=== PATIENT | female | born 1970 | race Caucasian/White ===

== ENCOUNTER → 2017-12-06 18:50 | Outpatient (CLI) | payer OTHER, SELFPAY ==
--- NOTE | 2017-12-06 18:52 | DI.RAD.S_ITS ---
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 TECHNIQUE: 3 views of the right toe(s) acquired. COMPARISON: None. FINDINGS: Bones: No fractures. There is dislocation of the middle phalanx of the fourth digit medially relative to the proximal phalanx. No suspicious bony lesions. Soft tissues: No suspicious soft tissue densities. IMPRESSION: Fourth digit dislocation as above. Dictated by: Jose Cruz Thomas M.D. on 12/06/2017 at 19:07 Approved by: Jose Cruz Thomas M.D. on 12/06/2017 at 19:08
== END ==
PROVIDERS: Visit Provider Physician Assistant
DX: S93.104A Unspecified dislocation of right toe(s), initial encounter (principal)
CPT/HCPCS: 73660

== ENCOUNTER 2017-12-06 19:11 | Emergency (ER) | payer OTHER, SELFPAY ==
[2017-12-06 19:16] VITALS: BP 169/91; PULSE 78; RESP 20; TEMP 36.4; O2SAT 100
--- NOTE | 2017-12-06 20:15 | PC.NURSE ---
Sami at bs for assessment
--- NOTE | 2017-12-06 20:23 | DI.RAD.S_ITS ---
PROCEDURE: XR TOE RT MIN 2V INDICATIONS: Post reduction dislocation 4th toe TECHNIQUE: 3 views of the right fourth toe(s) acquired. COMPARISON: None. FINDINGS: Bones: No fractures. Fourth digit has been relocated with mild residual medial subluxation of the middle phalanx. No suspicious bony lesions. Soft tissues: No suspicious soft tissue densities. IMPRESSION: Mild residual subluxation of middle phalanx, status post relocation. Dictated by: Jose Cruz Thomas M.D. on 12/06/2017 at 20:44 Approved by: Jose Cruz Thomas M.D. on 12/06/2017 at 20:45
--- NOTE | 2017-12-06 20:50 | DI.RAD.S_ITS ---
PROCEDURE: XR TOE RT MIN 2V INDICATIONS: Slight subluxation after 1st reduction TECHNIQUE: 3 views of the right fourth toe(s) acquired. COMPARISON: [facility], , XR TOE RT MIN 2V, 12/06/2017, 20:09. FINDINGS: Bones: The fourth digit has been relocated. There is a small radiodensity adjacent to the proximal interphalangeal joint of the fourth digit. No suspicious bony lesions. Soft tissues: No suspicious soft tissue densities. IMPRESSION: 1. Relocation of fourth digit. 2. Small fracture fragment adjacent to the proximal interphalangeal joint of the fourth digit. Dictated by: Jose Cruz Thomas M.D. on 12/06/2017 at 21:54 Approved by: Jose Cruz Thomas M.D. on 12/06/2017 at 21:55
--- NOTE | 2017-12-06 21:28 | PC.NURSE ---
protable xray at bedside
--- NOTE | 2017-12-06 22:05 | ED_ITS ---
HPI - Extremity Injury (Lower) <OLINDA Ellington - Last Filed: 12/06/17 22:25> General Chief Complaint: Extremity Injury, Lower Stated Complaint: TOE NEEDS SNAPPED INTO PLACE Time Seen by Provider: 12/06/17 19:26 History of Present Illness HPI Narrative: 47-year-old female here for complaint of pain and dislocation to her right 4th toe. Patient states that she was down in [place] when she was in the pool yesterday when she accidentally caught her toe along a hand rail in the pool with that toe. She flew back today and was seen at the walk-in clinic with an x-ray that shows that the toe is dislocated. She was sent here to have toe reduced. She denies any other injuries or complaints. Increased pain with motion of the right 4th toe.. Related Data Previous Rx's Medication Instructions Recorded epinephrine [EpiPen 2-Syed] 0.3 mg SQ PRN PRN #1 pkg 10/27/16 fluticasone 1 spray INTRANASAL BID #16 gm 12/10/16 norgestrel-ethinyl estradiol 1 tab PO QDAY #4 pac 12/10/16 [Ogestrel (28)] spironolactone 200 mg PO QDAY #180 tab 12/10/16 alprazolam 0.25 mg PO HSP PRN #30 tab 06/01/17 nystatin-triamcinolone 100,000 1 applictn TOPICAL BID #30 gram 11/23/17 unit/gram-0.1 % topical ointment Allergies Allergy/AdvReac Type Severity Reaction Status Date / Time watermelon [WATERMELON] Allergy Intermediate rash Unverified 12/06/17 18:08 Penicillins [PENICILLINS] Allergy Unknown Unverified 12/06/17 18:08 doxycycline [DOXYCYCLINE] AdvReac Mild rash Unverified 12/06/17 18:08 PEA Allergy Mild swelling Uncoded 12/06/17 18:08 of airway pit fruit AdvReac Mild itching Uncoded 12/06/17 18:08 throat Review of Systems <OLINDA Ellington - Last Filed: 12/06/17 22:25> Constitutional Denies chills, Denies fever(s), Denies lethargy and Denies weakness Eyes Denies change in vision, Denies eye discharge, Denies irritation and Denies loss of vision ENT Ears, Nose, Mouth, and Throat: Denies change in voice, Denies neck pain and Denies sore throat Cardiovascular Denies chest pain, Denies irregular heart rhythm, Denies lightheadedness, Denies palpitations, Denies dyspnea, Denies dyspnea on exertion and Denies orthopnea Respiratory Denies cough, Denies dyspnea, Denies dyspnea on exertion and Denies wheezing Gastrointestinal Gastrointestinal: Denies abdominal pain, Denies change in bowel habits, Denies diarrhea, Denies nausea and Denies vomiting Genitourinary Denies hematuria, Denies flank pain, Denies urinary incontinence and Denies urinary urgency Musculoskeletal Denies neck pain Comments: Right 4th toe dislocation and pain Integumentary/Breasts Denies pruritus, Denies erythema, Denies rash and Denies wounds Neurologic Denies confusion, Denies loss of vision and Denies weakness Psychiatric Denies anxiety, Denies confusion, Denies depression, Denies homicidal ideation and Denies suicidal ideation Endocrine Denies palpitations Hematologic/Lymphatic Denies easy bruising Allergic/Immunologic Denies wheezing Exam <OLINDA Ellington - Last Filed: 12/06/17 22:25> Initial Vital Signs Initial Vital Signs: Vital Signs Temperature 97.6 F 12/06/17 19:16 Pulse Rate 78 12/06/17 19:16 Respiratory Rate 20 12/06/17 19:16 Blood Pressure 169/91 H 12/06/17 19:16 Pulse Oximetry 100 12/06/17 19:16 Const General: cooperative and well developed Nutritional Appearance: well nourished Orientation: alert, awake, oriented x3 and not confused [facility] Mouth: oral mucosae normal and moist mucous membranes Eyes Conjunctivae: conjunctivae normal Sclera: sclerae normal Pupils: PERRL EOM: EOM intact bilaterally Resp Effort & Inspection: normal respiratory effort, able to speak in complete sentences, no respiratory distress and no use of accessory muscles Auscultation: clear to auscultation bilaterally, no rales, no rhonchi and no wheezes Cardio Rate: regular rate Rhythm: regular rhythm Heart Sounds: no click, no gallops, no murmurs and no rubs Skin General: no rashes or lesions noted, No jaundice and No petechiae Extrem Other: Slight swelling and tenderness to the right 4th great toe. Slight angulation medially. Distal sensation is intact. Distal cap refill less than 2 sec. Patient has range of motion of the toe. <DO Jean Carlos Kim Last Filed: 12/06/17 23:43> Initial Vital Signs Initial Vital Signs: Vital Signs Temperature 97.6 F 12/06/17 19:16 Pulse Rate 78 12/06/17 19:16 Respiratory Rate 20 12/06/17 19:16 Blood Pressure 169/91 H 12/06/17 19:16 Pulse Oximetry 100 12/06/17 19:16 Course <OLINDA Ellington - Last Filed: 12/06/17 22:25> Orders Ordered: ED Orders 12/06/17 20:23 XR toe RT min 2V Stat 12/06/17 20:50 XR toe RT min 2V Stat Vital Signs - 8 hr 12/06/17 19:16 12/06/17 22:13 Temperature 97.6 F Pulse Rate 78 67 Respiratory Rate 20 17 Blood Pressure 169/91 H 162/44 H Pulse Oximetry 100 <Agapito Aguilera DO - Last Filed: 12/06/17 23:43> Orders Ordered: ED Orders 12/06/17 20:23 XR toe RT min 2V Stat 12/06/17 20:50 XR toe RT min 2V Stat Vital Signs - 8 hr 12/06/17 19:16 12/06/17 22:13 Temperature 97.6 F Pulse Rate 78 67 Respiratory Rate 20 17 Blood Pressure 169/91 H 162/44 H Pulse Oximetry 100 MDM - Extremity Injury (Lower) <OLINDA Ellington - Last Filed: 12/06/17 22:25> Imaging Data toe: Radiologist's impression: 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 TECHNIQUE: 3 views of the right toe(s) acquired. COMPARISON: None. FINDINGS: Bones: No fractures. There is dislocation of the middle phalanx of the fourth digit medially relative to the proximal phalanx. No suspicious bony lesions. Soft tissues: No suspicious soft tissue densities. IMPRESSION: Fourth digit dislocation as above. Dictated by: Jose Cruz Thomas M.D. on 12/06/2017 at 19:07 Approved by: Jose Cruz Thomas M.D. on 12/06/2017 at 19:08 toe post reduction: Radiologist's impression: MDM Narrative Medical decision making narrative: Digital block was provided to the 4th right toe for local anesthesia. Reduction was completed of the toe post reduction x- ray showed still slight subluxation of the toe. Second reduction was completed with a another x-ray obtained and shows complete reduction of the toe. A small bone fragment is seen into PIP joint on x-ray. Toe was fide-taped to other toe. Follow up with primary care provider in a week for re-evaluation. Toe is fide taped to other toe. Patient already has postop shoe to wear for comfort and support use as directed for any worsening symptoms return emergency room. Discharge Plan Departure Patient Disposition: Home, Self-Care Clinical Impression: Closed dislocation of toe Discharge Date/Time: 12/06/17 22:14 Interventions: ED Discharge Assessment Last Done: 12/06/17 22:13 Instructions: Dislocated Toe Activity Restrictions/Additional Instructions: X-ray shows dislocation of right 4th toe. Toe was reduced today in the emergency room. X-ray does show that there is a small bone fragment to the area of the joint of the toe. You toe has been fide-taped to the other toe for comfort support. Use the postop shoe as directed for also for comfort and support. [id number] Tylenol or Motrin as needed for any discomfort. Ice and elevation help swelling. Follow up with primary care provider next week for re-evaluation. For any worsening symptoms return to the emergency room. Prescriptions: No Action epinephrine [EpiPen 2-Syed] 0.3 MG/0.3 ML auto-injector 0.3 mg SQ PRN PRNQty: 1 RF: 1 spironolactone 100 MG tablet 200 mg PO QDAY Qty: 180 RF: 3 norgestrel-ethinyl estradiol [Ogestrel (28)] 1 EACH tablet 1 tab PO QDAY Qty: 4 RF: 4 fluticasone 16 GM spray,suspension 1 spray Intranasal BID Qty: 16 RF: 3 alprazolam 0.25 MG tablet 0.25 mg PO HSP PRNQty: 30 RF: 2 nystatin-triamcinolone 100,000-0.1 unit/gram-% ointment 1 applictn Topical BID Qty: 30 RF: 5 Referrals: [facility] [Provider Group] <Agapito [place], DO - Last Filed: 12/06/17 23:43> Cosign ED Attending Veronikaature Attestation: I was immediately available in the department for consultation. Documentation has been reviewed. I agree with assessment and plan.
[2017-12-06 22:13] VITALS: BP 162/44; PULSE 67; RESP 17
== END 2017-12-06 22:14 | disposition home or self-care (01) ==
PROVIDERS: Emergency Provider Nurse Practitioner Family
DX: S93.104A Unspecified dislocation of right toe(s), initial encounter (principal); W23.1XXA Caught, crushed, jammed, or pinched between stationary objects, initial encounter
CPT/HCPCS: 73660; 99282; 99283

== ENCOUNTER → 2018-11-22 07:55 | Outpatient (CLI) | payer OTHER, SELFPAY ==
[2018-11-22 08:55] LABS: Alanine Aminotransferase 21 IU/L (9-52); Albumin 4.2 g/dL (3.5-5.0); Albumin Globulin Ratio 1.3 (1.0-2.8); Alkaline Phosphatase 43 U/L (38-126); Aspartate Aminotransferase 16 IU/L (14-36); BUN Creatinine Ratio 17.1 (6-22); Bilirubin Total 0.4 mg/dL (0.2-1.3); Blood Urea Nitrogen 12 mg/dL (7-17); Calcium 9.3 mg/dL (8.4-10.2); Carbon Dioxide 23 mmol/L (22-32); Chloride 105 mmol/L (98-107); Cholesterol 161 mg/dL (140-199); Estimated Glomerular Filt Rate > 60.0 mL/min (>60); Globulin 3.2 g/dL (1.7-4.1); Glucose 95 mg/dL (70-100); HDL Cholesterol 56 mg/dL (40-60); HEMOLYSIS < 15 (0-50); LDL Cholesterol Calculated 72 mg/dL (<100); Potassium 4.2 mmol/L (3.4-5.1); Sodium 138 mmol/L (137-145); Total Protein 7.4 g/dL (6.3-8.2); Triglycerides 167 mg/dL (35-150)
[2018-11-22 09:30] LABS: Thyroid Stimulating Hormone 3.79 uIU/mL (0.47-4.68)
== END ==
PROVIDERS: PCP Hospitalist; Visit Provider Hospitalist
DX: I10 Essential (primary) hypertension (principal)
CPT/HCPCS: 36415; 80053; 80061; 84443

== ENCOUNTER → 2019-04-26 08:30 | Outpatient (CLI) | payer OTHER, SELFPAY ==
[2019-04-26 09:44] LABS: Blood Urea Nitrogen 14 mg/dL (7-17); Calcium 10.1 mg/dL (8.4-10.2); Carbon Dioxide 25 mmol/L (22-32); Chloride 102 mmol/L (98-107); Estimated Glomerular Filt Rate > 60.0 mL/min (>60); Glucose 104 mg/dL (70-100); HEMOLYSIS < 15 (0-50); Potassium 4.3 mmol/L (3.4-5.1); Sodium 137 mmol/L (137-145)
== END ==
PROVIDERS: PCP Family Medicine; Visit Provider Family Medicine
DX: I10 Essential (primary) hypertension (principal)
CPT/HCPCS: 36415; 80048

== ENCOUNTER → 2019-05-16 08:24 | Outpatient (CLI) | payer OTHER, SELFPAY ==
[2019-05-16 10:02] LABS: BUN Creatinine Ratio 17.5 (6-22); Blood Urea Nitrogen 14 mg/dL (7-17); Calcium 9.7 mg/dL (8.4-10.2); Carbon Dioxide 24 mmol/L (22-32); Chloride 105 mmol/L (98-107); Estimated Glomerular Filt Rate > 60.0 mL/min (>60); Glucose 93 mg/dL (70-100); HEMOLYSIS < 15 (0-50); Magnesium 2.1 mg/dL (1.6-2.3); Potassium 4.4 mmol/L (3.4-5.1); Sodium 139 mmol/L (137-145)
== END ==
PROVIDERS: PCP Family Medicine; Visit Provider Family Medicine
DX: E28.2 Polycystic ovarian syndrome (principal); I10 Essential (primary) hypertension
CPT/HCPCS: 36415; 80048; 83735

== ENCOUNTER → 2020-05-21 14:18 | Outpatient (CLI) | payer OTHER, SELFPAY ==
[2020-05-21 14:50] LABS: COVID19 -Nasal RAPID Negative (Negative)
== END ==
PROVIDERS: PCP Family Medicine; Visit Provider Family Medicine
DX: J02.9 Acute pharyngitis, unspecified (principal)
CPT/HCPCS: 87070; 87635

== ENCOUNTER → 2021-07-14 07:13 | Outpatient (CLI) | payer OTHER, SELFPAY ==
[2021-07-14 07:46] LABS: Add Manual Diff / Slide Review NO; Basophils Absolute Auto 0 /uL (0-100); Basophils Percent Auto 0.6 % (0-2); Eosinophils Absolute Auto 200 /uL (0-450); Eosinophils Percent Auto 2.9 % (2-4); Hematocrit 36.2 % (36-46); Hemoglobin 12.7 g/dL (12.0-16.0); Lymphocytes Absolute Auto 2100 /uL (1100-4500); Lymphocytes Percent Auto 29.6 % (25-40); Mean Corpuscular HGB Conc 35.1 % (30-36); Mean Corpuscular Hemoglobin 32.5 PG (26-34); Mean Corpuscular Volume 92.6 fL (80-100); Monocytes Absolute Auto 400 /uL (0-900); Monocytes Percent Auto 6.3 % (3-14); Neutrophils Absolute Auto 4300 /uL (1500-7000); Neutrophils Percent Auto 60.6 % (50-75); Platelet Count 272 X10^3/uL (150-400); Red Blood Cell Count 3.91 X10^6/uL (4.0-5.2); Red Cell Distribution Width 12.8 % (11.6-14.8)
[2021-07-14 07:54] LABS: Hemoglobin A1C% w Est Avg Glu 5.3 % (4.0-6.0)
[2021-07-14 07:57] LABS: Alanine Aminotransferase 20 IU/L (<35); Albumin 4.3 g/dL (3.5-5.0); Albumin Globulin Ratio 1.3 (1.0-2.8); Alkaline Phosphatase 42 U/L (38-126); Aspartate Aminotransferase 22 IU/L (14-36); BUN Creatinine Ratio 15.2 (6-22); Bilirubin Total 0.4 mg/dL (0.2-1.3); Blood Urea Nitrogen 10 mg/dL (7-17); Calcium 9.3 mg/dL (8.4-10.2); Carbon Dioxide 25 mmol/L (22-32); Chloride 105 mmol/L (98-107); Cholesterol 157 mg/dL (140-199); Estimated Glomerular Filt Rate > 60.0 mL/min (>60); Globulin 3.2 g/dL (1.7-4.1); Glucose 96 mg/dL (70-100); HDL Cholesterol 59 mg/dL (40-60); HEMOLYSIS < 15 (0-50); LDL Cholesterol Calculated 75 mg/dL (<100); Sodium 136 mmol/L (137-145); Total Protein 7.5 g/dL (6.3-8.2); Triglycerides 115 mg/dL (35-150)
[2021-07-14 08:03] LABS: Iron 107 ug/dL (37-170)
[2021-07-14 08:13] LABS: Total Iron Binding Capacity 345 ug/dL (265-497)
[2021-07-14 08:20] LABS: Free T3, Triiodothyronine Free 3.53 pg/mL (2.77-5.27)
[2021-07-14 08:21] LABS: Vitamin D 25 Hydroxy (D3) 28.8 ng/mL (30.0-100.0)
[2021-07-14 08:31] LABS: Ferritin 78 ng/mL (11-264)
[2021-07-14 09:03] LABS: Folate 11.4 ng/mL (2.76-20.0); Vitamin B12 290 pg/mL (239-931)
[2021-07-14 16:18] LABS: PTT Partial Thromboplastin Tim 27 SECONDS (26.4-36.2)
[2021-07-16 07:08] LABS: Vitamin B1 132.2 nmol/L (66.5-200.0)
== END ==
PROVIDERS: PCP Family Medicine; Referring Provider Surgery; Visit Provider Surgery
DX: E46 Unspecified protein-calorie malnutrition (principal); E55.9 Vitamin D deficiency, unspecified; Z01.812 Encounter for preprocedural laboratory examination
CPT/HCPCS: 36415; 80053; 80061; 82306; 82607; 82728; 82746; 83036; 83540; 83550; 84425; 84443; 84481; 85025; 85610; 85730

== ENCOUNTER → 2021-09-23 14:40 | Outpatient (CLI) | payer OTHER, SELFPAY ==
--- NOTE | 2021-09-23 14:41 | DI.MG.S_ITS ---
BILATERAL DIGITAL SCREENING MAMMOGRAM 3D/2D WITH CAD: 09/23/2021 CLINICAL: Routine screening. No prior exams were available for comparison. There are scattered fibroglandular elements in both breasts. Current study was also evaluated with a Computer Aided Detection (CAD) system. There is a round asymmetry in the right breast middle depth lateral region seen on the craniocaudal view only. No other significant masses, calcifications, or other findings are seen in either breast. IMPRESSION: INCOMPLETE: NEEDS ADDITIONAL IMAGING EVALUATION The round asymmetry in the right breast likely represents a cyst and is indeterminate. Additional views with possible ultrasound are recommended. This exam was interpreted at Station ID: [id number]. NOTE: For mammograms, a report in lay terms will be sent to the patient. Approximately 15% of breast malignancies will not be visualized mammographically. In the management of a palpable breast mass, a negative mammogram must not discourage biopsy of a clinically suspicious lesion. Electronically Signed By: Lesli Catherine M.D. lk/:09/23/2021 15:48:08 letter sent: Additional Imaging Needed ACR BI-RADS Category 0: Incomplete 3340F
== END ==
PROVIDERS: PCP Family Medicine; Referring Provider Family Medicine; Visit Provider Family Medicine
DX: Z12.31 Encounter for screening mammogram for malignant neoplasm of breast (principal)
CPT/HCPCS: 77063; 77067

== ENCOUNTER → 2021-11-10 08:42 | Outpatient (CLI) | payer OTHER, SELFPAY ==
--- NOTE | 2021-11-10 | DI.MG.S_ITS ---
UNILATERAL RIGHT DIGITAL DIAGNOSTIC MAMMOGRAM 3D/2D WITH ADDITIONAL VIEWS: 11/10/2021 CLINICAL: Additional evaluation requested from prior study. Comparison is made to exam dated: 09/23/2021 mammogram - [facility]. There are scattered fibroglandular elements in right breast. There is an oval low density focal asymmetry with an obscured margin in the right breast at 9 o'clock middle depth. This is seen in additional views. No other significant masses or calcifications are seen in the breast. IMPRESSION: INCOMPLETE: NEEDS ADDITIONAL IMAGING EVALUATION The oval low density focal asymmetry in the right breast is indeterminate. An ultrasound is recommended. This exam was interpreted at Station ID: [id number]. NOTE: For mammograms, a report in lay terms will be sent to the patient. Approximately 15% of breast malignancies will not be visualized mammographically. In the management of a palpable breast mass, a negative mammogram must not discourage biopsy of a clinically suspicious lesion. Electronically Signed By: Donnie hope/jeancarlos:11/10/2021 10:44:18 ACR BI-RADS Category 0: Incomplete [id number]
--- NOTE | 2021-11-10 10:09 | DI.US.S_ITS ---
LIMITED ULTRASOUND OF RIGHT BREAST AND AXILLA: 11/10/2021 CLINICAL: Patient returns today to evaluate an asymmetry in the right breast. Comparison is made to exams dated: 11/10/2021 mammogram and 09/23/2021 mammogram - [facility]. Color flow ultrasound of the right breast 9 o'clock, and axilla regions was performed. Lewis scale images of the real-time examination were reviewed. There is a 0.5 cm x 0.3 cm x 0.3 cm cluster of irregular cysts in the right breast at 9 o'clock middle depth 5 cm from the nipple. This cluster of irregular cysts is hypoechoic. This correlates with mammography findings. No significant abnormalities were seen sonographically in the right axilla. IMPRESSION: PROBABLY BENIGN The 0.5 cm x 0.3 cm x 0.3 cm cluster of irregular cysts in the right breast is probably benign. A follow-up right ultrasound in 6 months is recommended to demonstrate stability. This exam was interpreted at Station ID: [id number]. Electronically Signed By: Donnie hope/jeancarlos:11/10/2021 10:46:38 letter sent: Followup Recommended Ultrasound BI-RADS: 3 Probably benign
== END ==
PROVIDERS: PCP Family Medicine; Referring Provider Family Medicine; Visit Provider Family Medicine
DX: R92.8 Other abnormal and inconclusive findings on diagnostic imaging of breast (principal); N60.01 Solitary cyst of right breast
CPT/HCPCS: 76642; 77065; G0279

== ENCOUNTER → 2022-03-17 07:06 | Outpatient (CLI) | payer OTHER, SELFPAY ==
[2022-03-17 08:52] LABS: Add Manual Diff / Slide Review NO; Basophils Absolute Auto 0 /uL (0-100); Basophils Percent Auto 0.5 % (0-2); Eosinophils Absolute Auto 100 /uL (0-450); Eosinophils Percent Auto 2.5 % (2-4); Hematocrit 35.3 % (36-46); Hemoglobin 11.9 g/dL (12.0-16.0); Lymphocytes Absolute Auto 1700 /uL (1100-4500); Mean Corpuscular HGB Conc 33.8 % (30-36); Mean Corpuscular Volume 94.7 fL (80-100); Monocytes Absolute Auto 400 /uL (0-900); Neutrophils Absolute Auto 3800 /uL (1500-7000); Platelet Count 257 X10^3/uL (150-400); Red Blood Cell Count 3.73 X10^6/uL (4.0-5.2); Red Cell Distribution Width 13.9 % (11.6-14.8)
[2022-03-17 09:02] LABS: Hemoglobin A1C% w Est Avg Glu 4.9 % (4.0-6.0)
[2022-03-17 09:16] LABS: Alanine Aminotransferase 23 IU/L (<35); Albumin Globulin Ratio 1.2 (1.0-2.8); Alkaline Phosphatase 50 U/L (38-126); Aspartate Aminotransferase 21 IU/L (14-36); BUN Creatinine Ratio 16.7 (6-22); Bilirubin Total 0.4 mg/dL (0.2-1.3); Blood Urea Nitrogen 12 mg/dL (7-17); Calcium 8.9 mg/dL (8.4-10.2); Carbon Dioxide 25 mmol/L (22-32); Chloride 105 mmol/L (98-107); Cholesterol 175 mg/dL (140-199); Estimated Glomerular Filt Rate > 60 mL/min (>60); Globulin 3.3 g/dL (1.7-4.1); Glucose 79 mg/dL (70-100); HDL Cholesterol 51 mg/dL (40-60); HEMOLYSIS < 15 (0-50); LDL Cholesterol Calculated 111 mg/dL (<100); Potassium 3.5 mmol/L (3.4-5.1); Sodium 141 mmol/L (137-145); Total Protein 7.3 g/dL (6.3-8.2); Triglycerides 67 mg/dL (35-150)
[2022-03-17 09:33] LABS: Vitamin D 25 Hydroxy (D3) 62.2 ng/mL (30.0-100.0)
[2022-03-17 09:50] LABS: Ferritin 45 ng/mL (11-264)
[2022-03-17 10:21] LABS: Folate > 20.0 ng/mL (2.76-20.0); Vitamin B12 431 pg/mL (239-931)
[2022-03-17 17:02] LABS: Iron 84 ug/dL (37-170)
[2022-03-17 17:18] LABS: Percent Iron Saturation 25 % (15-50); Total Iron Binding Capacity 331 ug/dL (265-497)
[2022-03-21 16:21] LABS: Vitamin B1 137.7 nmol/L (66.5-200.0)
== END ==
PROVIDERS: PCP Family Medicine; Referring Provider Surgery; Visit Provider Surgery
DX: E63.9 Nutritional deficiency, unspecified (principal); K90.9 Intestinal malabsorption, unspecified; Z98.84 Bariatric surgery status
CPT/HCPCS: 36415; 80053; 80061; 82306; 82607; 82728; 82746; 83036; 83540; 83550; 84425; 84443; 85025

== ENCOUNTER → 2022-05-11 07:07 | Outpatient (CLI) | payer OTHER, SELFPAY ==
[2022-05-12 18:01] LABS: Fecal Immunochemical Test Positive (Negative)
== END ==
PROVIDERS: PCP Family Medicine; Referring Provider Family Medicine; Visit Provider Family Medicine
DX: Z12.11 Encounter for screening for malignant neoplasm of colon (principal); Z12.39 Encounter for other screening for malignant neoplasm of breast
CPT/HCPCS: 82274

== ENCOUNTER 2022-08-06 11:46 | Day surgery (SDC) | payer OTHER, SELFPAY ==
--- NOTE | 2022-08-06 | PATH_ITS ---
[facility] Accession Number: [id number] No. of containers..01 Tissue . 01 Material submitted: . sigmoid colon - SIGMOID COLON POLYP . 01 Diagnosis: Sigmoid Colon Polyp, Biopsy: Colonic mucosa with benign lymphoid aggregate. LILIAN 08/11/2022 1236 Local . 01 Electronically signed: . Yasmin Harp MD, Pathologist NPI- [id number] . 01 Gross description: . SIGMOID COLON POLYP: Received in formalin is 1 fragment(s) of carpenter, soft tissue measuring 0.5 x 0.2 x 0.2 cm submitted entirely in 1 cassette(s) /CPE 08/07/2022 0708 Local . 01 Pathologist provided ICD-10: Z12.11, K63.89 . 01 CPT . 219142 Specimen Comment: A courtesy copy of this report has been sent to [phone] Performed at: 01 [facility] [address] [place] [address], [place], [place] [id number] MD Mark Lo MD Phone: [phone]
[2022-08-06 12:00] VITALS: BP 162/103; PULSE 81; RESP 16; TEMP 36.4; O2SAT 100; BMI 29.5
--- NOTE | 2022-08-06 12:07 | PM.HP.1 ---
History of Present Illness History of Present Illness Date Patient Seen: 08/06/22 Time Patient Seen: 12:07 Chief complaint: SDC Narrative: Naz is a 52-year-old woman who had a recent positive fit test. She has never had a colonoscopy before. No known family history of colon cancer. Patient History Medical History (Updated 08/06/22 @ 12:08 by Alexis Dallas MD) Acute sore throat Cyst of right breast Depression Grief reaction Insomnia PCOS (polycystic ovarian syndrome) Screen for colon cancer Screening for breast cancer Situational anxiety Family & Social History Family History Other Hypertension Tobacco & Substance use: Smoking Status Never smoker Meds Home Medications and Allergies Home Medications Medication Instructions Recorded Confirmed Type fluticasone propionate 50 1 spray intranasal BID ##16 12/10/16 07/23/22 Rx mcg/actuation nasal spray,suspension epinephrine 0.3 mg/0.3 mL 0.3 mg (0.3 mL) IM PRN PRN 10/12/18 07/23/22 Rx injection, auto-injector (EpiPen anaphylaxis #1 pkg 2-Syed) losartan 50 mg tablet See Rx Instructions .Route 12/03/21 07/23/22 Rx .COMPLEX #90 tabs alprazolam 1 mg tablet 1 mg PO BEDTIME PRN sleep #30 tabs 05/27/22 07/23/22 Rx bupropion HCl 150 mg 24 hr tablet, 150 mg PO QAM #90 tabs 05/27/22 07/23/22 Rx extended release losartan 100 mg tablet 100 mg PO DAILY #90 tabs 06/12/22 07/23/22 Rx norgestrel 0.3 mg-ethinyl See Rx Instructions .Route 07/22/22 07/23/22 Rx estradiol 30 mcg tablet (Cryselle .COMPLEX #63 tabs (28)) sodium,potassium,mag sulfates 17.5 See Rx Instructions PO .COMPLEX 07/27/22 Rx gram-3.13 gram-1.6 gram oral soln #354 mL (Suprep Bowel Prep Kit) chlorthalidone 25 mg tablet See Rx Instructions .Route 08/05/22 Rx .COMPLEX #90 tabs Allergies Allergy/AdvReac Type Severity Reaction Status Date / Time watermelon [WATERMELON] Allergy Intermediate rash Verified 08/06/22 12:03 Penicillins [PENICILLINS] Allergy Unknown Verified 08/06/22 12:03 doxycycline [DOXYCYCLINE] AdvReac Mild rash Verified 08/06/22 12:03 PEA Allergy Mild swelling Uncoded 08/06/22 12:03 of airway pit fruit AdvReac Mild itching Uncoded 08/06/22 12:03 throat Exam Const General: healthy appearing Assessment & Plan Assessment and plan (1) Positive FIT (fecal immunochemical test): Status: Acute Plan Recommended colonoscopy for positive fit test. We reviewed the risks benefits and indications and she would like to proceed. Time Spent With Patient Critical Care time: I spent a total of [] minutes of critical care time on this patient's care today; this time is exclusive of procedural time.
[2022-08-06] MEDS: LACTATED RINGERS 1,000 ML 42 ML IV (12:31)
[2022-08-06 13:20] VITALS: BP 120/75; PULSE 85; RESP 15; TEMP 37.3; O2SAT 100
--- NOTE | 2022-08-06 13:22 | PM.OP.COLON ---
Operative Date/Time/Diagnoses Date of procedure: 08/06/22 Time of procedure: 13:22 Pre-op diagnosis: Positive fit test Post-op diagnosis: same Procedure & Clinicians Study performed: Colonoscopy Same procedure as scheduled: Yes Surgeon: Alexis Dallas Procedure Notes Procedure in detail: Surgeon: Alexis Dallas MD Anesthesia: Alexa Abbasi CRNA Procedure: The patient was brought to the endoscopy suite, placed in left lateral decubitus position. The patient was connected to monitoring devices. A time-out was performed. Sedation was administered. Once the patient was adequately sedated, a digital rectal exam was performed and was normal. The scope was then inserted and advanced to the cecum where the appendiceal orifice was identified and photographed. The scope was then slowly withdrawn over greater than 6 minutes. The mucosa was thoroughly inspected. There was a 6 mm polyp in the sigmoid colon removed with a cold snare. The scope was retroflexed in the rectum. No other abnormalities were seen. The scope was straightened and removed. The patient was awakened and brought to recovery. Scope withdrawal time: 23 minutes Sedation time: 30 minutes EBL: 2 mL Findings: 6 mm sigmoid polyp Post-procedure Disposition: PACU
[2022-08-06 13:26] VITALS: BP 138/90; PULSE 79; RESP 18; TEMP 37.2; O2SAT 98
[2022-08-06 13:35] VITALS: BP 147/91; PULSE 78; RESP 18; TEMP 37.2; O2SAT 99
== END 2022-08-06 13:40 | disposition home or self-care (01) ==
PROVIDERS: Surgery; PCP Family Medicine; Referring Provider Surgery; Visit Provider Surgery
PROC: 0DJD8ZZ Inspection of Lower Intestinal Tract, Via Natural or Artificial Opening Endoscopic (ICD-10-PCS; CPT 45378; principal; 2022-08-06 13:15)
DX: Z12.11 Encounter for screening for malignant neoplasm of colon (principal); R19.5 Other fecal abnormalities
CPT/HCPCS: 45385; J2704

== ENCOUNTER → 2022-09-24 13:23 | Outpatient (CLI) | payer OTHER, SELFPAY ==
--- NOTE | 2022-09-24 13:24 | DI.MG.S_ITS ---
BILATERAL DIGITAL DIAGNOSTIC MAMMOGRAM 3D/2D: 09/24/2022 CLINICAL: Short term follow up of the right breast, due for bilateral imaging. Comparison is made to exams dated: 11/10/2021 mammogram, 09/23/2021 mammogram, and 11/10/2021 ultrasound - [facility]. There are scattered areas of fibroglandular density in both breasts (category b / 25%-50% glandular tissue). There is a focal asymmetry in the right breast at 9 o'clock middle depth. This is less prominent. No other significant masses, calcifications, or other findings are seen in either breast. IMPRESSION: INCOMPLETE: NEEDS ADDITIONAL IMAGING EVALUATION The focal asymmetry in the right breast is indeterminate. A targeted ultrasound is recommended and will immediately follow. Based on the Tyrer Cuzick model (a risk assessment model) the patient's lifetime risk is 8.3% and her 10 year risk is 2.0%. According to the ACR, ACS, and NCCN guidelines, an annual breast MRI exam along with mammogram is recommended if the patient's lifetime risk is 20% or greater. This exam was interpreted at Station ID: [id number]. NOTE: For mammograms, a report in lay terms will be sent to the patient. Approximately 15% of breast malignancies will not be visualized mammographically. In the management of a palpable breast mass, a negative mammogram must not discourage biopsy of a clinically suspicious lesion. Electronically Signed By: Joey Chamorro M.D. slc/:09/24/2022 14:09:08 ACR BI-RADS Category 0: Incomplete 3340F
--- NOTE | 2022-09-24 13:24 | DI.US.S_ITS ---
LIMITED ULTRASOUND OF RIGHT BREAST: 09/24/2022 CLINICAL: 6 month follow-up of cysts. Comparison is made to exams dated: 09/24/2022 mammogram, 11/10/2021 ultrasound, 11/10/2021 mammogram, and 09/23/2021 mammogram - [facility]. Color flow and real-time ultrasound of the right breast 9 o'clock region were performed. Lewis scale images of the real-time examination were reviewed. There is a 0.4 cm x 0.4 cm x 0.3 cm complicated cyst with an irregular internal wall in the right breast at 9 o'clock middle depth 5 cm from the nipple. This complicated cyst displays posterior acoustic enhancement. This abnormality is not significantly changed and correlates with mammography findings. Color flow imaging demonstrates that there is no vascularity present. IMPRESSION: PROBABLY BENIGN The 0.4 cm complicated cyst in the right breast is probably benign. A follow-up ultrasound in 6 months is recommended to demonstrate continued stability. Exam findings were conveyed to the patient. This exam was interpreted at Station ID: [id number]. Electronically Signed By: Joey Chamorro M.D. [facility] [place]/:09/24/2022 14:48:34 letter sent: Followup Recommended Ultrasound BI-RADS: 3 Probably benign
== END ==
PROVIDERS: PCP Family Medicine; Referring Provider Family Medicine; Visit Provider Family Medicine
DX: R92.8 Other abnormal and inconclusive findings on diagnostic imaging of breast (principal); N60.01 Solitary cyst of right breast
CPT/HCPCS: 76642; 77066; G0279

== ENCOUNTER 2023-11-15 04:53 | Emergency (ER) | payer OTHER, SELFPAY ==
[2023-11-15 05:02] VITALS: BP 142/84; PULSE 76; RESP 18; TEMP 36.8; O2SAT 100
--- NOTE | 2023-11-15 05:16 | EKG_ITS ---
[address] [address] Test Date: 2023-11-15 Pat Name: Naz Melendez Department: [facility] Room: Gender: Female Mathematics Teacher: ALBERTINA : 1970 Requested By: Order Number: [id number] Reading MD: David Lyons Measurements Intervals [place] Rate: 73 P: 18 MA: 162 QRS: 35 QRSD: 100 T: 43 QT: 390 QTc: 429 Interpretive Statements Normal sinus rhythm Electronically Signed On 11-17-2023 18:32:26 PDT by David Lyons
--- NOTE | 2023-11-15 05:18 | ED.EXTPRO ---
HPI - Extremity Problem General Chief complaint: Extremity Problem,Nontraumatic Stated complaint: pain in left arm Time Seen by Provider: 11/15/23 05:09 Source: patient Mode of arrival: Ambulatory History of Present Illness HPI Narrative: Patient is a 53-year-old female history of hypertension PCOS gastric bypass presenting today with left arm pain. She woke up from her sleep near her wrist she has sharp shooting pain that lasts for few seconds and goes away and comes again lasting for about another 20 seconds. It has been off and on for about 1 hour. She feels like her whole left arm feels a little funny. She has absolutely no chest pain palpitations or shortness of breath. She called nurse friend who recommended she come to the ER. He has no weakness in her strength. Dad had heart attack and age 75 but she reports he had multiple medical problems. Related Data Previous Rx's Medication Instructions Recorded fluticasone propionate 50 1 spray intranasal BID ##16 12/10/16 mcg/actuation nasal spray,suspension epinephrine 0.3 mg/0.3 mL 0.3 mg (0.3 mL) IM PRN PRN 10/12/18 injection, auto-injector (EpiPen anaphylaxis #1 pkg 2-Syed) alprazolam 1 mg tablet 1 mg PO BEDTIME PRN sleep #30 tabs 01/13/23 norgestrel 0.3 mg-ethinyl 1 tab PO DAILY #56 tabs 08/06/23 estradiol 30 mcg tablet (Low-Ogestrel (28)) chlorthalidone 25 mg tablet 25 mg PO DAILY #90 tabs 08/20/23 bupropion HCl 150 mg 24 hr tablet, 150 mg PO QAM #30 tabs 10/20/23 extended release losartan 100 mg tablet 100 mg PO DAILY #90 tabs 10/26/23 Allergies Allergy/AdvReac Type Severity Reaction Status Date / Time watermelon [WATERMELON] Allergy Intermediate rash Verified 08/06/22 12:03 Penicillins [PENICILLINS] Allergy Unknown Verified 08/06/22 12:03 doxycycline [DOXYCYCLINE] AdvReac Mild rash Verified 08/06/22 12:03 PEA Allergy Mild swelling Uncoded 08/06/22 12:03 of airway pit fruit AdvReac Mild itching Uncoded 08/06/22 12:03 throat Patient History Medical History Cyst of right breast Insomnia Depression Grief reaction Situational anxiety Screening for breast cancer Screen for colon cancer Acute sore throat PCOS (polycystic ovarian syndrome) Surgical History H/O gastric sleeve (~2021) Family History Other Hypertension Social History Smoking Status: Never smoker Smoking Status: Never smoker alcohol intake frequency: holidays/special occasions only Substance Use Type: does not use Exam Initial Vital Signs Initial Vital Signs: Vital Signs Temperature 98.3 F 11/15/23 05:02 Pulse Rate 76 11/15/23 05:02 Respiratory Rate 18 11/15/23 05:02 Blood Pressure 142/84 H 11/15/23 05:02 Pulse Oximetry 100 11/15/23 05:02 Oxygen Delivery Method Room Air 11/15/23 05:02 GENERAL: Alert pleasant well-appearing 53-year-old female and in no acute distress. HEENT: Head atraumatic,EOMI, pupils reactive, face symmetric, moist mucous membranes CARDIOVASCULAR: Regular rate and rhythm without murmurs, rubs or gallops. RESPIRATORY: Breath sounds equal bilaterally, no wheezes rales or rhonchi. EXTREMITIES: Normal range of motion, no clubbing or edema. Neurovascularly intact NEUROLOGICAL: Alert and oriented x4.Normal gait and speech. Cranial nerves II through XII grossly intact. [employer] strength equal bilaterally SKIN: Warm, dry, no laceration, no petechiae, no rashes or lesions. Course Orders Ordered: ED Orders 11/15/23 05:16 EKG-12 Lead Stat Vital Signs Vital signs: Vital Signs - 8 hr 11/15/23 05:02 11/15/23 05:41 Temperature 98.3 F 98.4 F Pulse Rate 76 85 Respiratory Rate 18 16 Blood Pressure 142/84 H 122/74 Pulse Oximetry 100 98 Oxygen Delivery Method Room Air Room Air MDM - Extremity (Nontraumatic) MDM Narrative Medical decision making narrative: Patient 53-year-old female presents today with sudden onset left arm pain near her wrist. She is able to pinpoint exactly where in her forearm it hurts. She feels like it radiates from there. She has no chest pain. Her EKG does not show any sort of ischemia. She is offered Tylenol Motrin here but declines. She has no weakness no concern for CVA or TIA. She is sharp shooting pains for every few seconds. I suspect some sort of neuropathy. Recommend watchful waiting and supportive care. Discharge Plan Departure Patient Disposition: Home Clinical Impression: Neuropathy Instructions: DI for Peripheral Neuropathy Activity Restrictions/Additional Instructions: *You have been diagnosed with neuropathy *What to do: At this time sounds like you are experiencing some sort of nerve issue recommend some Tylenol Motrin may try ice or heat. Continue to monitor *Continue to take medications as directed *Follow up with your primary care provider in 2-3 days or call [phone] *Return to ER if you should have chest pain, weakness decreased coordinator of rehabilitation services strength or any new, worsening or concerning symptoms Prescriptions: No Action fluticasone propionate 16 GM spray,suspension 1 spray Intranasal BID Qty: 16 3RF epinephrine [EpiPen 2-Syed] 0.3 mg/0.3 mL auto-injector 0.3 mg IM PRN PRN (Reason: anaphylaxis) Qty: 1 1RF alprazolam 1 mg tablet 1 mg PO BEDTIME PRN (Reason: sleep) Qty: 30 5RF Rx Instructions: pt took 0.5 mg last Low-Ogestrel (28) 0.3-30 mg-mcg tablet 1 tab PO DAILY Qty: 56 0RF Rx Instructions: NEED APPPPOINTMENT FOR FURTHER REFILLS chlorthalidone 25 mg tablet 25 mg PO DAILY Qty: 90 0RF Rx Instructions: NEED APPOINTMENT BEFORE NEXT REFILL bupropion HCl 150 mg tablet extended release 24 hr 150 mg PO QAM Qty: 30 3RF Rx Instructions: PT WILL NEED TO BE SEEN BEFORE NEXT REFILL 09/12/ losartan 100 mg tablet 100 mg PO DAILY Qty: 90 0RF Referrals: Galen Turner DO [Primary Care Provider] - Stand Alone Forms: Patient Portal/API
--- NOTE | 2023-11-15 05:26 | EKG_ITS ---
[address] [address] Test Date: 2023-11-15 Pat Name: Naz Melendez Department: Room: Gender: Female Contact Center Agent: ALBERTINA : 1970 Requested By: Order Number: [id number] Reading MD: David Lyons Measurements Intervals [place] Rate: 75 P: 19 GA: 166 QRS: 33 QRSD: 98 T: 40 QT: 388 QTc: 433 Interpretive Statements Normal sinus rhythm Electronically Signed On 11-17-2023 18:32:30 PDT by David Lyons
[2023-11-15 05:41] VITALS: BP 122/74; PULSE 85; RESP 16; TEMP 36.9; O2SAT 98
== END 2023-11-15 05:42 | disposition home or self-care (01) ==
PROVIDERS: Emergency Provider Emergency Medicine; PCP Family Medicine
DX: G62.9 Polyneuropathy, unspecified (principal); R07.9 Chest pain, unspecified
CPT/HCPCS: 93005; 99281; 99283

== ENCOUNTER → 2025-03-09 09:23 | Outpatient (CLI) | payer OTHER, SELFPAY | PROVIDERS: PCP Family Medicine; Visit Provider Nurse Practitioner Family | DX: R30.0 Dysuria (principal) | CPT/HCPCS: 87077; 87086; 87186 ==